=== PATIENT | male | born 1955 | race Two or more races ===

== ENCOUNTER 2023-04-03 20:22 | Emergency (ER) | payer MEDICARE, BC ==
[~2023-04-03] VITALS: Ht 185.4 cm; Wt 77.1 kg
[2023-04-03 22:25] VITALS: BP 144/97; TEMP 98.2; O2SAT 98
== END 2023-04-03 22:25 | disposition home or self-care (01) ==
LOC: ER 20:32
DX: S00.83XA Contusion of other part of head, initial encounter (principal); R06.02 Shortness of breath; W18.39XA Other fall on same level, initial encounter; Y93.89 Activity, other specified; Y92.89 Other specified places as the place of occurrence of the external cause; Y99.8 Other external cause status
CPT/HCPCS: 70450-TC